=== PATIENT | male | born 2000 | race Caucasian/White ===

== ENCOUNTER 2018-05-09 01:12 | Emergency (ER) | payer OTHER ==
[2018-05-09 01:37] VITALS: BMI 20.5
[2018-05-09 01:43] VITALS: RESP 18
--- NOTE | 2018-05-09 02:10 | ED PDOC ---
HPI: Psych/Substance Abuse Time Seen by Provider: 05/09/18 01:39 Chief Complaint (Nursing): Psychiatric Evaluation History Per: Patient History/Exam Limitations: no limitations Onset/Duration Of Symptoms: Days Current Symptoms Are (Timing): Still Present Suicide/Self Injury Attempted (Context): Cut Wrists Associated Symptoms: Suicidal Thoughts. denies: Anger, Anxiety, Agitation Additional Complaint(s): Hx of OCD and ADD presenting with suicidal thoughts. States he discontinued his ADD medications Thursday and since then has been feeling thoughts of suicide, states he has been repeatedly cutting his wrists superficially in order to "Feel control" or "feel anything" patient states. Currently he denies suicidal or homicidal ideation. Denies alcohol abuse, drug abuse. Past Medical History Reviewed: Historical Data, Nursing Documentation, Vital Signs Vital Signs: Last Vital Signs Temp 97.8 F 05/09/18 01:37 Pulse 81 05/09/18 01:37 Resp 18 05/09/18 01:37 BP 129/83 05/09/18 01:37 Pulse Ox 98 05/09/18 01:37 - Family History Family History: States: No Known Family Hx - Allergies Allergies/Adverse Reactions: Allergies Allergy/AdvReac Type Severity Reaction Status Date / Time No Known Allergies Allergy Verified 05/09/18 01:37 Review of Systems ROS Statement: Except As Marked, All Systems Reviewed And Found Negative Psych: Positive for: Suicidal ideation Physical Exam - Reviewed Nursing Documentation Reviewed: Yes Vital Signs Reviewed: Yes - Physical Exam Appears: Positive for: Well, Non-toxic, No Acute Distress Head Exam: Positive for: ATRAUMATIC, NORMAL INSPECTION, NORMOCEPHALIC Skin: Positive for: Normal Color, Warm, DRY Eye Exam: Positive for: EOMI, Normal appearance, PERRL ENT: Positive for: Normal ENT Inspection Neck: Positive for: Normal, Painless ROM Cardiovascular/Chest: Positive for: Regular Rate, Rhythm Respiratory: Positive for: CNT, Normal Breath Sounds Gastrointestinal/Abdominal: Positive for: Normal Exam, Soft. Negative for: Tenderness Back: Positive for: Normal Inspection Extremity: Positive for: Normal ROM, Other (<0.5cm abrasion to R wrist, no nbleeding) Neurologic/Psych: Positive for: Alert, Oriented - Laboratory Results Result Diagrams: 05/09/18 02:03 05/09/18 02:03 - ECG O2 Sat by Pulse Oximetry: 98 Pulse Ox Interpretation: Normal Medical Decision Making Medical Decision MakinAM PAtient presenting with suicidal gesture --Calm, coopeartive, alert, oriented --Will obtain medical clearance and obtain Crisis eval 430AM --Patient medically cleared --Patient seen by crisis and cleared psychiatrically by Dr. Loco with diagnosis: ADHD --Referrals given to patient --Well appearing upon discharge Disposition - Clinical Impression Clinical Impression: ADHD - Disposition Disposition: Routine/Home Disposition Time: 04:42 Condition: STABLE Instructions: Attention Deficit Hyperactivity Disorder (ADHD) (DC), Suicide Prevention Forms: [employer] ([place] Islander)
[2018-05-09 02:13] LABS: BASO # 0.1 K/uL (0.0-0.2); BASO % 1.2 % (0.0-2.0); EOS # 0.3 K/uL (0.0-0.7); HEMOGLOBIN 15.1 g/dL (12.0-18.0); LYMPH # 3.7 K/uL (1.0-4.3); LYMPH % 40.6 % (20.0-40.0); MEAN CELL VOLUME 85.9 fl (80.0-94.0); MEAN CORPUSCULAR HEMOGLOBIN 29.1 pg (27.0-31.0); MEAN CORPUSCULAR HGB CONC 33.9 g/dL (33.0-37.0); MEAN PLATELET VOLUME 8.6 fl (7.2-11.7); MONO # 0.5 K/uL (0.0-0.8); MONO % 5.3 % (0.0-10.0); NEUT # 4.5 K/uL (1.8-7.0); NEUT % 49.9 % (50.0-75.0); RBC 5.17 Mil/uL (4.40-5.90); RED CELL DISTRIBUTION WIDTH 13.8 % (11.5-14.5)
[2018-05-09 02:19] LABS: CALCIUM 9.9 mg/dL (8.4-10.2); GFR NON-AFRICAN AMERICAN > 60
[2018-05-09 02:20] LABS: ACETAMINOPHEN < 10.0 ug/ml (10.0-30.0); SALICYLATE < 1.0 mg/dl
[2018-05-09 02:25] LABS: BLOOD UREA NITROGEN 18 mg/dl (9-20)
[2018-05-09 02:52] LABS: URINE AMORPHOUS SEDIMENT OCC /ul (<OCC); URINE BACTERIA RARE (<OCC); URINE BILIRUBIN NEGATIVE (NEGATIVE); URINE BLOOD NEGATIVE (NEGATIVE); URINE CLARITY TURBID (Clear); URINE COLOR YELLOW (YELLOW); URINE GLUCOSE (UA) NEG (NEGATIVE); URINE LEUKOCYTE ESTERASE NEG Leu/uL (Negative); URINE PROTEIN NEGATIVE (NEGATIVE); URINE UROBILINOGEN 0.2-1.0 mg/dL (0.2-1.0)
[2018-05-09 02:59] LABS: BENZODIAZEPINES, UR NEGATIVE (NEGATIVE); OPIATES, UR NEGATIVE (NEGATIVE); PHENCYCLIDINE, UR NEGATIVE (NEGATIVE)
[2018-05-09 03:04] LABS: BARBITURATES, UR NEGATIVE (NEGATIVE)
[2018-05-09 05:01] VITALS: BP 124/80; PULSE 84; TEMP 98.1; O2SAT 99
== END 2018-05-09 05:05 | disposition home or self-care (01) ==
LOC: H.ER 01:12
DX: F90.9 Attention-deficit hyperactivity disorder, unspecified type (principal)

== ENCOUNTER 2018-06-15 15:27 | Emergency (ER) | payer OTHER ==
[2018-06-15 15:27] VITALS: BMI 20.5
[2018-06-15 15:39] VITALS: BP 132/83; PULSE 95; RESP 16; TEMP 97.8; O2SAT 98
--- NOTE | 2018-06-15 16:48 | ED PDOC ---
HPI: Trauma/Fall - HPI Time Seen by Provider: 06/15/18 15:56 Chief Complaint (Nursing): Trauma Chief Complaint (Provider): head trauma History Per: Patient History/Exam Limitations: no limitations Onset/Duration Of Symptoms: Hrs Additional Complaint(s): 17 y/o M with hx of anxiety/depression, OCD and ADHD who presents with nausea and dizziness after hitting his head on the corner of a metal bed approximately 3 hrs ago. Pt states that he had LOC after hitting his head as he does not remember getting onto the floor. He had blurry vision and dizziness with nausea and photophobia after that and continues to have photophobia and nausea. He also has a mild SMITH. Denies gait instability, vomiting, current visual blurriness. Pt admits to using marijuana as well as magic mushrooms last night and denies using any drugs today. He has not taken any medication for the SMITH. Past Medical History Reviewed: Historical Data, Nursing Documentation, Vital Signs Vital Signs: Last Vital Signs Temp 97.8 F 06/15/18 15:36 Pulse 95 H 06/15/18 15:36 Resp 16 06/15/18 15:36 BP 132/83 06/15/18 15:36 Pulse Ox 98 06/15/18 15:36 - Medical History PMH: Depression Denies: Diabetes, Hepatitis, HIV, HTN, Seizures, Sexually Transmitted Disease Other PMH: ADHD, OCD - Surgical History Surgical History: Appendectomy - Family History Family History: States: Unknown Family Hx - Home Medications Home Medications: Ambulatory Orders Medication Instructions Recorded Acetaminophen [Tylenol 325mg tab] 650 mg PO Q6 PRN 7 Days tab 06/15/18 RX: Ibuprofen [Motrin Tab] 600 mg PO Q6 PRN 7 Days tab 06/15/18 Sertraline [Zoloft] 75 mg PO DAILY 06/15/18 - Allergies Allergies/Adverse Reactions: Allergies Allergy/AdvReac Type Severity Reaction Status Date / Time No Known Allergies Allergy Verified 06/15/18 15:35 Review of Systems Constitutional: Negative for: Fever, Chills Respiratory: Negative for: Shortness of Breath Gastrointestinal: Positive for: Nausea. Negative for: Vomiting, Abdominal Pain Neurological: Negative for: Confusion Physical Exam - Reviewed Nursing Documentation Reviewed: Yes Vital Signs Reviewed: Yes - Physical Exam Appears: Positive for: Well Head Exam: Positive for: ATRAUMATIC Eye Exam: Positive for: EOMI, PERRL (dilated pupils B/L but reactive to light association) Neck: Positive for: Normal Cardiovascular/Chest: Positive for: Regular Rate, Rhythm Respiratory: Positive for: Normal Breath Sounds Gastrointestinal/Abdominal: Positive for: Normal Exam Back: Positive for: Normal Inspection Neurologic/Psych: Positive for: Alert, Oriented - ECG O2 Sat by Pulse Oximetry: 98 Medical Decision Making Medical Decision Making: Head CT w/o contrast Zofran odt 4mg PO x 1 Tylenol 650mg PO x [address] w/ contrast: HEMORRHAGE: No intracranial hemorrhage. BRAIN: No mass effect or edema. No atrophy or chronic microvascular ischemic changes. VENTRICLES: Unremarkable. No hydrocephalus. CALVARIUM: Unremarkable. PARANASAL SINUSES: Unremarkable as visualized. No significant inflammatory changes. MASTOID AIR CELLS: Unremarkable as visualized. No inflammatory changes. OTHER FINDINGS: Mild left supraorbital soft tissue swelling. IMPRESSION: No acute intracranial pathology. Re-evaluated: SMITH, dizziness and nausea have improved somewhat. Patient given post-concussion instructions as well as return instructions given. Disposition - Clinical Impression Clinical Impression: Concussion, Psychoactive substance use disorder - Patient ED Disposition Is Patient to be Admitted: No Counseled Patient/Family Regarding: Studies Performed, Diagnosis, Rx Given - Disposition Disposition: Routine/Home Disposition Time: 17:55 Condition: STABLE Additional Instructions: You should avoid excess activity and get lots of rest. Get at least 10hrs of sleep at night and minimize screen time. Avoid screen time at least 2hrs prior to going to bed. Take Tylenol and Ibuprofen for headache. Return to ER if you develop worsening ability to walk, persistent nausea and vomiting, trouble with your speech. Avoid using any drugs from now on as they can worsen your symptoms. F/u with your school health clinic if you feel unable to go to class after the next 2 days. Prescriptions: Acetaminophen [Tylenol 325mg tab] 650 mg PO Q6 PRN 7 Days tab PRN Reason: Pain, Moderate (4-7) RX: Ibuprofen [Motrin Tab] 600 mg PO Q6 PRN 7 Days tab PRN Reason: Pain, Moderate (4-7) Instructions: Drug Abuse and Drug Addiction (DC), Postconcussion Syndrome (DC), Head Injury Observation (DC) Forms: [employer] (Wolof), [facility] ED School/Work Excuse Print Language: KOSOVAN
--- NOTE | 2018-06-15 17:10 | CT ---
Date of service: 06/15/2018 PROCEDURE: CT HEAD WITHOUT CONTRAST. HISTORY: hit head against metal, +LOC,nausea COMPARISON: None available. TECHNIQUE: Axial computed tomography images were obtained through the head/brain without intravenous contrast. Radiation dose: Total exam DLP = 909.34 mGy-cm. This CT exam was performed using one or more of the following dose reduction techniques: Automated exposure control, adjustment of the mA and/or kV according to patient size, and/or use of iterative reconstruction technique. FINDINGS: HEMORRHAGE: No intracranial hemorrhage. BRAIN: No mass effect or edema. No atrophy or chronic microvascular ischemic changes. VENTRICLES: Unremarkable. No hydrocephalus. CALVARIUM: Unremarkable. PARANASAL SINUSES: Unremarkable as visualized. No significant inflammatory changes. MASTOID AIR CELLS: Unremarkable as visualized. No inflammatory changes. OTHER FINDINGS: Mild left supraorbital soft tissue swelling. IMPRESSION: No acute intracranial pathology.
== END 2018-06-15 17:54 | disposition home or self-care (01) ==
LOC: H.ER 15:27
DX: S09.90XA Unspecified injury of head, initial encounter (principal); S06.0X0A Concussion without loss of consciousness, initial encounter; F12.90 Cannabis use, unspecified, uncomplicated; F90.9 Attention-deficit hyperactivity disorder, unspecified type; Z86.59 Personal history of other mental and behavioral disorders

== ENCOUNTER 2018-07-16 01:43 | Emergency (ER) | payer OTHER ==
[2018-07-16 01:44] VITALS: BMI 20.5
[2018-07-16 02:03] VITALS: O2SAT 98
--- NOTE | 2018-07-16 03:30 | ED PDOC ---
HPI: General Adult Time Seen by Provider: 07/16/18 03:10 Chief Complaint (Nursing): Shortness Of Breath Chief Complaint (Provider): short of breath History Per: Patient History/Exam Limitations: no limitations Onset/Duration Of Symptoms: Days (2 weeks), Waxing/Waning Additional Complaint(s): 17 y/o male presents for evaluation of episodes of shortness of breath x 2 weeks. Patient states he has been having problems sleeping for years, about 2 weeks ago started taking an [id number] anti-histamine medication (name unknown) at night time. Patient states since taking that medication he has been having episodes where he wakes up from his sleep coughing/choking and "gasping for air". Denies fever, headache, dizziness, congestion, cough, chest pain, shortness of breath, palpitations. Past Medical History Reviewed: Historical Data, Nursing Documentation, Vital Signs Vital Signs: Last Vital Signs Temp 98.4 F 07/16/18 01:56 Pulse 65 07/16/18 01:56 Resp 16 07/16/18 01:56 BP 128/80 07/16/18 01:56 Pulse Ox 98 07/16/18 01:56 - Medical History PMH: Depression Denies: Diabetes, Hepatitis, HIV, HTN, Seizures, Sexually Transmitted Disease - Surgical History Surgical History: Appendectomy - Family History Family History: States: Unknown Family Hx - Living Arrangements Living Arrangements: With Friends/Others (student) - Home Medications Home Medications: Ambulatory Orders Medication Instructions Recorded Acetaminophen [Tylenol 325mg tab] 650 mg PO Q6 PRN 7 Days tab 06/15/18 Ibuprofen [Motrin Tab] 600 mg PO Q6 PRN 7 Days tab 06/15/18 Sertraline [Zoloft] 75 mg PO DAILY 06/15/18 - Allergies Allergies/Adverse Reactions: Allergies Allergy/AdvReac Type Severity Reaction Status Date / Time No Known Allergies Allergy Verified 07/16/18 02:03 Review of Systems ROS Statement: Except As Marked, All Systems Reviewed And Found Negative Respiratory: Positive for: Shortness of Breath Physical Exam - Reviewed Nursing Documentation Reviewed: Yes Vital Signs Reviewed: Yes - Physical Exam Appears: Positive for: Well, Non-toxic, No Acute Distress Head Exam: Positive for: ATRAUMATIC, NORMAL INSPECTION, NORMOCEPHALIC Skin: Positive for: Normal Color Eye Exam: Positive for: Normal appearance ENT: Positive for: Normal ENT Inspection Cardiovascular/Chest: Positive for: Regular Rate, Rhythm Respiratory: Positive for: Normal Breath Sounds Gastrointestinal/Abdominal: Positive for: Normal Exam Back: Positive for: Normal Inspection Extremity: Positive for: Normal ROM Neurologic/Psych: Positive for: Alert, Oriented (x3) - ECG O2 Sat by Pulse Oximetry: 98 - Progress ED Course And Treament: Patient well-appearing, PE without acute findings. Vitals stable Patient educated on findings, advised to stop anti-histamine Follow up with PMD within 2-3 days Return precautions given Disposition - Clinical Impression Clinical Impression: Choking episode occurring at night - Patient ED Disposition Is Patient to be Admitted: No Counseled Patient/Family Regarding: Diagnosis, Need For Followup - Disposition Referrals: [facility] [Outside] [facility] [Outside] Disposition: Routine/Home Disposition Time: 03:38 Condition: GOOD Instructions: What Is a Sleep Study? Forms: [employer] (Romanian)
[2018-07-16 04:45] VITALS: RESP 18
[2018-07-16 04:58] VITALS: BP 122/76; PULSE 70; TEMP 98.2
== END 2018-07-16 03:45 | disposition home or self-care (01) ==
LOC: H.ER 01:43
DX: R09.89 Other specified symptoms and signs involving the circulatory and respiratory systems (principal)

== ENCOUNTER 2018-09-27 02:47 | Emergency (ER) | payer OTHER ==
[2018-09-27 03:10] VITALS: BMI 21.4
[2018-09-27 03:15] VITALS: O2SAT 100
[2018-09-27 04:03] LABS: SQUAMOUS EPITHIAL < 1 /hpf (0-5); URINE BILIRUBIN NEGATIVE (NEGATIVE); URINE BLOOD NEGATIVE (NEGATIVE); URINE CLARITY CLEAR (Clear); URINE COLOR YELLOW (YELLOW); URINE GLUCOSE (UA) NEG (NEGATIVE); URINE HYALINE CAST 0-2 /hpf (0-2); URINE LEUKOCYTE ESTERASE NEG Leu/uL (Negative); URINE PROTEIN 100 mg/dL (NEGATIVE)
[2018-09-27 04:10] LABS: BARBITURATES, UR NEGATIVE (NEGATIVE); BENZODIAZEPINES, UR NEGATIVE (NEGATIVE); OPIATES, UR NEGATIVE (NEGATIVE); PHENCYCLIDINE, UR NEGATIVE (NEGATIVE)
--- NOTE | 2018-09-27 04:31 | ED PDOC ---
HPI:Nausea, Vomiting, Diarrhea Time Seen by Provider: 09/27/18 03:12 Chief Complaint (Nursing): GI Problem Chief Complaint (Provider): GI Problem History Per: Patient History/Exam Limitations: no limitations Onset/Duration Of Symptoms: Days (x 2) Current Symptoms Are (Timing): Still Present Quality Of Discomfort: Aching Associated Symptoms: Nausea, Vomiting, Chest Pain Additional Complaint(s): 17 year old male with a history of depression and ADHD presents to the ED for evaluation of body aches, nasal congestion, nausea, diarrhea and vomiting for two days. Patient is a [employer] student and admits that he is stressed about studying for finals. He is reporting body aches mostly in his bilateral elbow. Yesterday, he developed nausea and two episodes of vomiting after eating out. Patient states he initially thought it was food poisoning, but the vomiting did not continue. The nausea persisted and he also experienced chest pain tonight worse when he laid down as well as two episodes of loose stools. Patient admits that laying down makes him more stressed because he thinks about finals. Pain feels similar to indigestion. Of note, a few months ago he had some psychiatric issues. During this time, he admits that he was taking too much of his Adderall. After an inpatient stay, he reports that he has been doing much better. Patient has a history of suicidal ideation, but currently he denies homicidal and suicidal ideation, and auditory of visual hallucinations. Also denies recent travel, sick contacts and cough. PMD: in [place] Past Medical History Reviewed: Historical Data, Nursing Documentation, Vital Signs Vital Signs: Last Vital Signs Temp 98.4 F 09/27/18 03:10 Pulse 74 09/27/18 03:10 Resp 18 09/27/18 03:10 BP 120/75 09/27/18 03:10 Pulse Ox 100 09/27/18 03:10 Primary Care Provider: Procedure,Nonphys - Medical History PMH: Depression Denies: Diabetes, Hepatitis, HIV, HTN, Chronic Kidney Disease, Seizures, Sexually Transmitted Disease - Surgical History Surgical History: Appendectomy, Hernia Repair Other surgeries: ear surgery, face surgery, left thumb surgery - Family History Family History: States: No Known Family Hx - Social History Current smoker - smoking cessation education provided: No Alcohol: None Drugs: Denies - Home Medications Home Medications: Ambulatory Orders Medication Instructions Recorded Acetaminophen [Tylenol 325mg tab] 650 mg PO Q6 PRN 7 Days tab 06/15/18 Ibuprofen [Motrin Tab] 600 mg PO Q6 PRN 7 Days tab 06/15/18 Sertraline [Zoloft] 75 mg PO DAILY 06/15/18 Famotidine [Pepcid] 20 mg PO DAILY #30 tab 09/27/18 - Allergies Allergies/Adverse Reactions: Allergies Allergy/AdvReac Type Severity Reaction Status Date / Time No Known Allergies Allergy Verified 09/27/18 03:10 Review of Systems ROS Statement: Except As Marked, All Systems Reviewed And Found Negative Constitutional: Positive for: Other (body aches, mostly in bilateral elbows ) ENT: Positive for: Nose Congestion Cardiovascular: Positive for: Chest Pain Gastrointestinal: Positive for: Nausea, Vomiting, Diarrhea Psych: Negative for: Suicidal ideation, Other (hallucinations) Physical Exam - Reviewed Nursing Documentation Reviewed: Yes Vital Signs Reviewed: Yes - Physical Exam Comments: GENERALIZED APPEARANCE:Patient is awake, alert, oriented x3 in no acute distress. SKIN: Warm, dry; (-) cyanosis. EYES: (-) conjunctival pallor. ENMT: Mucous membranes moist. Ears clear, throat clear - no tonsilar erythema or inflammation, no air way obstruction or uvula deviation NECK: (-) tenderness, (-) stiffness, (-) lymphadenopathy, (-) JVD. CHEST AND RESPIRATORY: (-) rash, (-) chest wall tenderness. Lungs: (-) rales, (-) rhonchi, (-) wheezes, (-) rub; breath sounds equal bilaterally. HEART AND CARDIOVASCULAR: (-) irregularity; (-) murmur, (-) gallop, (-) rub. ABDOMEN AND GI: (+) mild diffuse tenderness in upper abdomen (-) distention,(- ) rebound, (-) guarding (-) palpable pulsatile mass. Bowel sounds active. EXTREMITIES: (-) deformity; (-) edema, (-) calf tenderness. (+) distal pulses. NEURO AND PSYCH: Mental status as above. Cranial nerves grossly intact; strength symmetric. - Laboratory Results Lab Results: Urine Color Yellow (YELLOW) 09/27/18 03:40 Urine Clarity Clear (Clear) 09/27/18 03:40 Urine pH 6.0 (5.0-8.0) 09/27/18 03:40 Ur Specific [place] 1.035 (1.003-1.030) H 09/27/18 03:40 Urine Protein 100 mg/dL (NEGATIVE) 09/27/18 03:40 Urine Glucose (UA) Neg mg/dL (NEGATIVE) 09/27/18 03:40 Urine Ketones Negative mg/dL (NEGATIVE) 09/27/18 03:40 Urine Blood Negative (NEGATIVE) 09/27/18 03:40 Urine Nitrate Negative (NEGATIVE) 09/27/18 03:40 Urine Bilirubin Negative (NEGATIVE) 09/27/18 03:40 Urine Urobilinogen 2.0 mg/dL (0.2-1.0) 09/27/18 03:40 Ur Leukocyte Esterase Neg Beba/uL (Negative) 09/27/18 03:40 Urine RBC (Auto) 1 /hpf (0-3) 09/27/18 03:40 Urine Microscopic WBC 1 /hpf (0-5) 09/27/18 03:40 Ur Squamous Epith Cells < 1 /hpf (0-5) 09/27/18 03:40 Hyaline Casts 0-2 /hpf (0-2) 09/27/18 03:40 - ECG ECG: Positive for: Interpreted By Me, Viewed By Ca ECG Rhythm: Positive for: Normal QRS, Normal ST Segment, Sinus Rhythm (normal). Negative for: ST/T Changes Rate: 75 O2 Sat by Pulse Oximetry: 100 Medical Decision Making Medical Decision Makin:31 MDM: --EKG --CXR --UDS --Throat cx --Influenza Ab --Rapid strep --UA 04:42 Chest x-ray reviewed by this provider; shows no active disease. Patient reports improvement of symptoms and is stable for discharge. discussed results, diagnosis, treatment, return precautions and f/u with pt who is understanding, in agreement and stable for dc Scribe Attestation: Documented by Susan Miller, acting as a scribe forShahzad Castellanos PA-C Provider Scribe Attestation: All medical record entries made by the Scribe were at my direction and personally dictated by me. I have reviewed the chart and agree that the record accurately reflects my personal performance of the history, physical exam, medical decision making, and the department course for this patient. I have also personally directed, reviewed, and agree with the discharge instructions and disposition Disposition - Clinical Impression Clinical Impression: Chest pain, GERD (gastroesophageal reflux disease) - Patient ED Disposition Is Patient to be Admitted: No Counseled Patient/Family Regarding: Studies Performed, Diagnosis, Need For Followup, Rx Given - Disposition Referrals: your, doctor [Other] Disposition: Routine/Home Disposition Time: 04:45 Condition: IMPROVED Additional Instructions: Thank you for letting us take care of you today. The emergency medical care you received today was directed at your acute symptoms. If you were prescribed any medication, please fill it and take as directed. It may take several days for your symptoms to resolve. Return to the Emergency Department if your symptoms worsen, do not improve, or if you have any other problems. Please contact your doctor in 2 days for re-evaluation and follow up / or call one of the physicians/clinics you have been referred to that are listed on the Patient Visit Information form that is included in your discharge packet. Bring any paperwork you were given at discharge with you along with any medications you are taking to your follow up visit. Our treatment cannot replace ongoing medical care by a primary care provider (PCP) outside of the emergency department. Prescriptions: Famotidine [Pepcid] 20 mg PO DAILY #30 tab Instructions: Chest Pain, Acid Reflux (Gastroesophageal Reflux Disease) in Adults Forms: [employer] (Serbian), [facility] ED School/Work Excuse Print Language: TURKISH - POA Present On Arrival: None
[2018-09-27 04:47] VITALS: PULSE 75
[2018-09-27 04:53] VITALS: BP 122/74; RESP 14; TEMP 98
--- NOTE | 2018-09-27 08:13 | RAD ---
Date of service: 09/27/2018 HISTORY: chest apin COMPARISON: No prior. TECHNIQUE: Chest PA and lateral views FINDINGS: LUNGS: No active pulmonary disease. PLEURA: No significant pleural effusion identified. No pneumothorax apparent. CARDIOVASCULAR: No aortic atherosclerotic calcification present. Normal cardiac size. No pulmonary vascular congestion. OSSEOUS STRUCTURES: No significant abnormalities. VISUALIZED UPPER ABDOMEN: Normal. OTHER FINDINGS: None. IMPRESSION: No acute cardiopulmonary disease appreciated.
--- NOTE | 2018-09-27 19:25 | CARD ---
APPROVED REPORT Date of service: 09/27/2018 EKG Measurement Heart [id number] <Conclusion> Normal sinus rhythm with sinus arrhythmia Normal ECG
== END 2018-09-27 04:53 | disposition home or self-care (01) ==
LOC: H.ER 02:47
DX: R07.9 Chest pain, unspecified (principal); K21.9 Gastro-esophageal reflux disease without esophagitis; Z86.59 Personal history of other mental and behavioral disorders